=== PATIENT | female | born 1985 | race African-American/Black ===

== ENCOUNTER 2016-10-04 18:55 | Day surgery (SDC) | payer BC ==
[2016-10-04] MEDS ORDERED: Sodium Chloride 0.9% 10 ML Syringe FLUSH PRN (19:18)
[2016-10-04] MEDS ORDERED: HYDROmorphone 0.5 MG/0.5 ML Syringe IVPUSH ONE (19:20)
[2016-10-04] MEDS ORDERED: Sodium Chloride 0.9% 1,000 ML IV SCH (19:30)
[2016-10-04] MEDS ORDERED: Bupivacaine 0.5% 30 ML SDV ONE (21:01)
[2016-10-04] MEDS ORDERED: Rocuronium 50 MG/5 ML Vial ONE (21:15)
[2016-10-04] MEDS ORDERED: fentaNYL 250 MCG/5 ML SDV ONE ×2 (21:15→23:18)
[2016-10-04] MEDS ORDERED: Midazolam 1 MG/ML 2 ML SDV ONE (21:15)
[2016-10-04] MEDS ORDERED: Propofol 200 MG/20 ML SDV ONE (21:15)
[2016-10-04] MEDS ORDERED: Ondansetron 4 MG/2 ML SDV ONE (21:15)
[2016-10-04] MEDS ORDERED: Lidocaine 1% 4 ML ONE (21:16)
--- NOTE | 2016-10-04 21:19 | US ---
First trimester obstetrical ultrasound: Multiple real-time images were obtained transvaginally. Comparison: No previous study. No intrauterine gestational sac is seen. Soft tissue abnormality is seen next to the left ovary measuring 3.4 cm in greatest dimension. Ectopic is a possibility. Ovaries are otherwise unremarkable showing normal follicles. There is a small amount of complicated fluid within the pelvis which likely represents blood. Impression: 1. Soft tissue abnormality next to the left ovary measuring 3.4 cm. Small amount of blood felt to be present within the cul-de-sac. Findings are suspicious for ectopic given that no intrauterine gestational sac is seen. Diagnostic code #5
--- NOTE | 2016-10-04 21:25 | EDM.PDOC ---
ED HPI GI/ABDOMINAL - General Chief Complaint: ENTERTAINER & COMIC Problem Stated Complaint: LEFT SIDE PAIN Time Seen by Provider: 10/04/16 19:04 Source of Information: Reports: Patient History Limitations: Reports: No limitations - History of Present Illness INITIAL COMMENTS - FREE TEXT/NARRATIVE: The patient presents with LLQ abdominal paint that started yesterday. She has no nausea and vomiting. She was seen at the walk in clinic and sent over for possible ectopic . The patient had an ectopic a few years ago in [facility]. She had surgery. From what she says they did not need to remove the fallopian tube. She has a positive test and some bleeding. She has no nausea or vomiting. She has no nausea or vomiting. She has no diarrhea. Her last normal menstrual period was a few days ago but before that it was a couple months. Timing/Duration: Reports: Day(s): Location: [facility] Quality: Reports: stabbing Severity: moderate Context: Denies: sick contact, bad/questionable food, out of country travel, recent surgery Associated Symptoms (-Female): Denies: denies other symptoms - Related Data Allergies/ADRs: Allergies Allergy/AdvReac Type Severity Reaction Status Date / Time No Known Allergies Allergy Verified 10/04/16 19:08 Home Meds: Home Meds . 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 Denies: dysuria, frequency Musculoskeletal: Reports: no symptoms ED EXAM, GI/ABD - Physical Exam Exam: See Below Exam Limited By: No limitations General Appearance: alert, no apparent distress Ears: normal external exam Nose: normal inspection Head: atraumatic, normocephalic Neck: normal inspection Respiratory/Chest: no respiratory distress, lungs clear, normal breath sounds Cardiovascular: regular rate, rhythm, no edema, no murmur GI/Abdominal: soft, no organomegaly, no mass, tenderness (Moderate to the LLQ) (Female) Exam: Normal external exam, Other (Mild dark blood in the vagian vault) Course - Vital Signs Last Recorded V/S: Last Vital Signs Temp 96.9 F 10/04/16 19:02 Pulse 100 10/04/16 19:02 Resp 89 H 10/04/16 19:02 BP 136/82 10/04/16 19:02 Pulse Ox 100 10/04/16 19:02 - Orders/Labs/Meds Orders: Active Orders 24 hr Category Date Time Status Pelvic Exam, Set Up [RC] ASDIRECTED Care 10/04/16 19:25 Active Peripheral IV Care [RC] . DIRECTED Care 10/04/16 19:18 Active ABO/RH TYPE [BBK] Stat Lab 10/04/16 19:48 Results PATIENT RETYPE [BBK] Stat Lab 10/04/16 19:48 Results Sodium Chloride 0.9% [Normal Saline] 1,000 ml Med 10/04/16 19:30 Active IV ASDIRECTED Sodium Chloride 0.9% [Saline Flush] Med 10/04/16 19:18 Active 10 ml FLUSH ASDIRECTED PRN Peripheral IV Insertion Adult [OM.PC] Stat Oth 10/04/16 19:18 Ordered Medication Orders Sodium Chloride (Normal Saline) 1,000 mls @ 125 mls/hr IV ASDIRECTED JUAN JOSE Last Admin: 10/04/16 19:33 Dose: 125 mls/hr Sodium Chloride (Saline Flush) 10 ml FLUSH ASDIRECTED PRN PRN Reason: Keep Vein Open Last Admin: 10/04/16 19:37 Dose: 10 ml Labs: Laboratory Tests 10/04/16 10/04/16 10/04/16 Range/Units 19:27 19:48 19:48 WBC 5.30 (3.98-10.04) K/mm3 RBC 4.64 (3.98-5.22) M/mm3 Hgb 14.3 (11.2-15.7) gm/L Hct 42.8 (34.1-44.9) % MCV 92.2 (79.4-94.8) fl MCH 30.8 (25.6-32.2) pg MCHC 33.4 (32.2-35.5) g/dl RDW Std Deviation 42.9 (36.4-46.3) fL Plt Count 235 (182-369) K/mm3 MPV 10.2 (9.4-12.3) fl Neut % (Auto) 59.8 (34.0-71.1) % Lymph % (Auto) 33.2 (19.3-51.7) % [place] % (Auto) 6.4 (4.7-12.5) % Eos % (Auto) 0.4 L (0.7-5.8) Baso % (Auto) 0.2 (0.1-1.2) % Neut # 3.17 (1.56-6.13) K/mm3 Lymph # 1.76 (1.18-3.74) K/mm3 [place] # 0.34 (0.24-0.36) K/mm3 Eos # 0.02 L (0.04-0.36) K/mm3 Baso # 0.01 (0.01-0.08) K/mm3 Sodium 139 (136-145) mEq/L Potassium 3.9 (3.5-5.1) mEq/L Chloride 103 (98-107) mEq/L Carbon Dioxide 27 (21-32) mEq/L Anion Gap 12.9 (5-15) BUN 6 L (7-18) mg/dL Creatinine 0.7 (0.55-1.02) mg/dL Est Cr Clr Drug Dosing 125.92 mL/min Estimated GFR (MDRD) > 60 (>60) mL/min BUN/Creatinine Ratio 8.6 L (14-18) Glucose 88 (74-106) mg/dL Calcium 9.7 (8.5-10.1) mg/dL Total Bilirubin 0.3 (0.2-1.0) mg/dL AST 26 (15-37) U/L ALT 26 (14-59) U/L Alkaline Phosphatase 104 (46-116) U/L Total Protein 8.1 (6.4-8.2) g/dl Albumin 3.6 (3.4-5.0) g/dl Globulin 4.5 gm/dL Albumin/Globulin Ratio 0.8 L (1-2) Lipase 113 (73-393) U/L HCG, Quant mIU/mL Urine Color Yellow (Yellow) Urine Appearance Clear (Clear) Urine pH 5.5 (5.0-8.0) Ur Specific [place] 1.010 (1.005-1.030) Urine Protein Negative (Negative) Urine Glucose (UA) Negative (Negative) Urine Ketones Negative (Negative) Urine Occult Blood Trace-lysed H (Negative) Urine Nitrite Negative (Negative) Urine Bilirubin Negative (Negative) Urine Urobilinogen 0.2 (0.2-1.0) Ur Leukocyte Esterase Negative (Negative) Urine RBC 0-5 (0-5) /hpf Urine WBC 0-5 (0-5) /hpf Ur Squamous Epith Cells 0-5 (0-5) /hpf Urine Bacteria Rare (FEW) /hpf Urine Mucus Not seen (FEW) /hpf Blood Type 10/04/16 10/04/16 Range/Units 19:48 19:48 WBC (3.98-10.04) K/mm3 RBC (3.98-5.22) M/mm3 Hgb (11.2-15.7) gm/L Hct (34.1-44.9) % MCV (79.4-94.8) fl MCH (25.6-32.2) pg MCHC (32.2-35.5) g/dl RDW Std Deviation (36.4-46.3) fL Plt Count (182-369) K/mm3 MPV (9.4-12.3) fl Neut % (Auto) (34.0-71.1) % Lymph % (Auto) (19.3-51.7) % [place] % (Auto) (4.7-12.5) % Eos % (Auto) (0.7-5.8) Baso % (Auto) (0.1-1.2) % Neut # (1.56-6.13) K/mm3 Lymph # (1.18-3.74) K/mm3 [place] # (0.24-0.36) K/mm3 Eos # (0.04-0.36) K/mm3 Baso # (0.01-0.08) K/mm3 Sodium (136-145) mEq/L Potassium (3.5-5.1) mEq/L Chloride (98-107) mEq/L Carbon Dioxide (21-32) mEq/L Anion Gap (5-15) BUN (7-18) mg/dL Creatinine (0.55-1.02) mg/dL Est Cr Clr Drug Dosing mL/min Estimated GFR (MDRD) (>60) mL/min BUN/Creatinine Ratio (14-18) Glucose (74-106) mg/dL Calcium (8.5-10.1) mg/dL Total Bilirubin (0.2-1.0) mg/dL AST (15-37) U/L ALT (14-59) U/L Alkaline Phosphatase (46-116) U/L Total Protein (6.4-8.2) g/dl Albumin (3.4-5.0) g/dl Globulin gm/dL Albumin/Globulin Ratio (1-2) Lipase (73-393) U/L HCG, Quant 113.0 mIU/mL Urine Color (Yellow) Urine Appearance (Clear) Urine pH (5.0-8.0) Ur Specific [place] (1.005-1.030) Urine Protein (Negative) Urine Glucose (UA) (Negative) Urine Ketones (Negative) Urine Occult Blood (Negative) Urine Nitrite (Negative) Urine Bilirubin (Negative) Urine Urobilinogen (0.2-1.0) Ur Leukocyte Esterase (Negative) Urine RBC (0-5) /hpf Urine WBC (0-5) /hpf Ur Squamous Epith Cells (0-5) /hpf Urine Bacteria (FEW) /hpf Urine Mucus (FEW) /hpf Blood Type O POSITIVE Meds: Medications Generic Name Dose Route Start Last Admin Trade Name Freq PRN Reason Stop Dose Admin Sodium Chloride 1,000 mls @ 125 mls/hr 10/04/16 19:30 10/04/16 19:33 Normal Saline IV 125 mls/hr ASDIRECTED JUAN JOSE Administration Sodium Chloride 10 ml 10/04/16 19:18 10/04/16 19:37 Saline Flush FLUSH 10 ml ASDIRECTED PRN Administration Keep Vein Open Discontinued Medications Generic Name Dose Route Start Last Admin Trade Name Freq PRN Reason Stop Dose Admin Bupivacaine HCl Confirm 10/04/16 21:01 Marcaine 0.5% Administered 10/04/16 21:02 Dose 30 ml .ROUTE .STK-MED ONE Fentanyl Confirm 10/04/16 21:15 Sublimaze Administered 10/04/16 21:16 Dose 250 mcg .ROUTE .STK-MED ONE Hydromorphone HCl 0.5 mg 10/04/16 19:20 10/04/16 19:36 Dilaudid IVPUSH 10/04/16 19:21 0.5 mg ONETIME ONE Administration Lidocaine HCl Confirm 10/04/16 21:16 Xylocaine-Mpf 1% Administered 10/04/16 21:17 Dose 4 mls @ as directed .ROUTE .STK-MED ONE Midazolam HCl Confirm 10/04/16 21:15 Versed 1 Mg/Ml Administered 10/04/16 21:16 Dose 2 mg .ROUTE .STK-MED ONE Ondansetron HCl Confirm 10/04/16 21:15 Zofran Administered 10/04/16 21:16 Dose 4 mg .ROUTE .STK-MED ONE Propofol Confirm 10/04/16 21:15 Diprivan 20 Ml Administered 10/04/16 21:16 Dose 200 mg .ROUTE .STK-MED ONE Rocuronium [place] Confirm 10/04/16 21:15 Zemuron Administered 10/04/16 21:16 Dose 50 mg .ROUTE .STK-MED ONE - Re-Assessments/Exams Free Text/Narrative Re-Assessment/Exam: 10/04/16 21:24 I ordered an IV NS 1L bolus, dilaudid 0.5mg IV, labs, UA and US. Her CBC and CMP looks good. Her UA shows some blood but no UTI. Her HCG was 113. She has a mass in the left adnexa and no IUP and there is some fluid in the cauldesac. She has an ectopic . She is RH positive. I called Dr Moore and he will come see the patient and take her to the OR. Departure - Departure Time of Disposition: 21:30 Disposition: Refer to Observation Condition: serious Clinical Impression: Ectopic Qualifiers: Location of ectopic : tubal Intrauterine status: without intrauterine Qualified Code(s): O00.10 - Tubal without intrauterine - My Orders Last 24 Hours: My Active Orders 10/04/16 19:18 Peripheral IV Care [RC] . DIRECTED Sodium Chloride 0.9% [Saline Flush] 10 ml FLUSH ASDIRECTED PRN Peripheral IV Insertion Adult [OM.PC] Stat 03/15/17 19:25 Pelvic Exam, Set Up [RC] ASDIRECTED 10/04/16 19:30 Sodium Chloride 0.9% [Normal Saline] 1,000 ml IV ASDIRECTED 10/04/16 19:48 ABO/RH TYPE [BBK] Stat PATIENT RETYPE [BBK] Stat - Assessment/Plan Last 24 Hours: My Active Orders 10/04/16 19:18 Peripheral IV Care [RC] . DIRECTED Sodium Chloride 0.9% [Saline Flush] 10 ml FLUSH ASDIRECTED PRN Peripheral IV Insertion Adult [OM.PC] Stat 10/04/16 19:25 Pelvic Exam, Set Up [RC] ASDIRECTED 10/04/16 19:30 Sodium Chloride 0.9% [Normal Saline] 1,000 ml IV ASDIRECTED 10/04/16 19:48 ABO/RH TYPE [BBK] Stat PATIENT RETYPE [BBK] Stat
--- NOTE | 2016-10-04 21:28 | PCM.HP ---
H&P History of Present Illness - General Date of Service: 10/04/16 Source of Information: Patient History Limitations: Reports: No limitations - History of Present Illness Initial Comments - Free Text/Narative: 31 y/o Prior ectopic by history left side. LMP "sometime in July 2016" patient not sure of date. Patient awoke this AM 1100 with sudden onset left lower quadrant pain and it has persisted since then. She started having vaginal bleeding 09/28/2016 and it has persisted since then. Positive test here in hospital today. H/O Rh positive. LLQ pain persist. USG revealed no intrauterine gestational sac seen. Soft tissue abnormality is seen next to the left ovary measuring 3.4 cm in greatest dimension. Ectopic is possibility. Ovaries otherwise unremarkable. Small amount of complicated fluid within the pelvis likely represent blood. Plan laparoscopy possible laparotomy and removal of a tube/ovary. Also possible Dilatation and curettage. Onset of Symptoms: Reports: today Symptom Onset Date: 10/04/16 Symptom Onset Time: 11:00 Duration of Symptoms: Reports: Hour(s):, Getting worse Location: Reports: abdomen (predominately LLQ) Quality: Reports: Ache, Dull, Pressure Improves with: Reports: None Worsens with: Reports: None Associated Symptoms: Reports: no other symptoms Left Lower Abdomen Pain Score (Numeric/FACES): 5 - Related Data Allergies/Adverse Reactions: Allergies Allergy/AdvReac Type Severity Reaction Status Date / Time No Known Allergies Allergy Verified 10/04/16 19:08 Home Medications: Home Meds . 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) LMP (Approximate): (positive test H/O prior ectopic left side.) Other OB/BYN History: 2010 Psychiatric History: Reports: Anxiety, Depression Social & Family History - Tobacco Use Smoking Status *Q: Current Some Day Smoker Years of Tobacco use: 3 Packs/Tins Daily: 0.1 - Caffeine Use Caffeine Use: Reports: Coffee - Recreational Drug Use Recreational Drug Use: No H&P Review of Systems - Review of Systems: Review Of Systems: See Below General: Reports: no symptoms HEENT: Reports: no symptoms Pulmonary: Reports: No Symptoms Cardiovascular: Reports: no symptoms Gastrointestinal: Reports: No symptoms Genitourinary: Reports: no symptoms Musculoskeletal: Reports: no symptoms Skin: Reports: no symptoms Psychiatric: Reports: no symptoms Neurological: Reports: No Symptoms Hematologic/Lymphatic: Reports: no symptoms Immunologic: Reports: no symptoms Exam - Exam Exam: See Below - Vital Signs Vital Signs: Last Vital Signs Temp 96.9 F 10/04/16 19:02 Pulse 100 10/04/16 19:02 Resp 89 H 10/04/16 19:02 BP 136/82 10/04/16 19:02 Pulse Ox 100 10/04/16 19:02 Weight: 198 lb - Exam General: alert, oriented, 4 HEENT: Conjunctiva clear, Hearing intact, Mucosa moist & pink, PERRLA Neck: supple, trachea midline, 2 Lungs: Clear to auscultation, Normal respiratory effort Cardiovascular: regular rate, regular rhythm Abdomen: normal bowel sounds, soft (Female) Exam: Normal external exam, Normal speculum exam, Normal bimanual exam Back Exam: normal inspection, full range of motion, NT Extremities: 3, normal inspection, 10 Skin: warm, dry, intact Neuro Extensive - Mental Status: alert, oriented x3, normal mood/affect, normal cognition Neuro Extensive - Motor, Sensory, Reflexes: CN II-XII intact, normal gait, normal reflexes Psychiatric: alert, normal affect, normal mood - Patient Data Lab Results last 24 hrs: Laboratory Results - last 24 hr 10/04/16 10/04/16 10/04/16 Range/Units 19:27 19:48 19:48 WBC 5.30 (3.98-10.04) K/mm3 RBC 4.64 (3.98-5.22) M/mm3 Hgb 14.3 (11.2-15.7) gm/L Hct 42.8 (34.1-44.9) % MCV 92.2 (79.4-94.8) fl MCH 30.8 (25.6-32.2) pg MCHC 33.4 (32.2-35.5) g/dl RDW Std Deviation 42.9 (36.4-46.3) fL Plt Count 235 (182-369) K/mm3 MPV 10.2 (9.4-12.3) fl Neut % (Auto) 59.8 (34.0-71.1) % Lymph % (Auto) 33.2 (19.3-51.7) % [place] % (Auto) 6.4 (4.7-12.5) % Eos % (Auto) 0.4 L (0.7-5.8) Baso % (Auto) 0.2 (0.1-1.2) % Neut # 3.17 (1.56-6.13) K/mm3 Lymph # 1.76 (1.18-3.74) K/mm3 [place] # 0.34 (0.24-0.36) K/mm3 Eos # 0.02 L (0.04-0.36) K/mm3 Baso # 0.01 (0.01-0.08) K/mm3 Sodium 139 (136-145) mEq/L Potassium 3.9 (3.5-5.1) mEq/L Chloride 103 (98-107) mEq/L Carbon Dioxide 27 (21-32) mEq/L Anion Gap 12.9 (5-15) BUN 6 L (7-18) mg/dL Creatinine 0.7 (0.55-1.02) mg/dL Est Cr Clr Drug Dosing 125.92 mL/min Estimated GFR (MDRD) > 60 (>60) mL/min BUN/Creatinine Ratio 8.6 L (14-18) Glucose 88 (74-106) mg/dL Calcium 9.7 (8.5-10.1) mg/dL Total Bilirubin 0.3 (0.2-1.0) mg/dL AST 26 (15-37) U/L ALT 26 (14-59) U/L Alkaline Phosphatase 104 (46-116) U/L Total Protein 8.1 (6.4-8.2) g/dl Albumin 3.6 (3.4-5.0) g/dl Globulin 4.5 gm/dL Albumin/Globulin Ratio 0.8 L (1-2) Lipase 113 (73-393) U/L HCG, Quant mIU/mL Urine Color Yellow (Yellow) Urine Appearance Clear (Clear) Urine pH 5.5 (5.0-8.0) Ur Specific [place] 1.010 (1.005-1.030) Urine Protein Negative (Negative) Urine Glucose (UA) Negative (Negative) Urine Ketones Negative (Negative) Urine Occult Blood Trace-lysed H (Negative) Urine Nitrite Negative (Negative) Urine Bilirubin Negative (Negative) Urine Urobilinogen 0.2 (0.2-1.0) Ur Leukocyte Esterase Negative (Negative) Urine RBC 0-5 (0-5) /hpf Urine WBC 0-5 (0-5) /hpf Ur Squamous Epith Cells 0-5 (0-5) /hpf Urine Bacteria Rare (FEW) /hpf Urine Mucus Not seen (FEW) /hpf Blood Type 10/04/16 10/04/16 Range/Units 19:48 19:48 WBC (3.98-10.04) K/mm3 RBC (3.98-5.22) M/mm3 Hgb (11.2-15.7) gm/L Hct (34.1-44.9) % MCV (79.4-94.8) fl MCH (25.6-32.2) pg MCHC (32.2-35.5) g/dl RDW Std Deviation (36.4-46.3) fL Plt Count (182-369) K/mm3 MPV (9.4-12.3) fl Neut % (Auto) (34.0-71.1) % Lymph % (Auto) (19.3-51.7) % [place] % (Auto) (4.7-12.5) % Eos % (Auto) (0.7-5.8) Baso % (Auto) (0.1-1.2) % Neut # (1.56-6.13) K/mm3 Lymph # (1.18-3.74) K/mm3 [place] # (0.24-0.36) K/mm3 Eos # (0.04-0.36) K/mm3 Baso # (0.01-0.08) K/mm3 Sodium (136-145) mEq/L Potassium (3.5-5.1) mEq/L Chloride (98-107) mEq/L Carbon Dioxide (21-32) mEq/L Anion Gap (5-15) BUN (7-18) mg/dL Creatinine (0.55-1.02) mg/dL Est Cr Clr Drug Dosing mL/min Estimated GFR (MDRD) (>60) mL/min BUN/Creatinine Ratio (14-18) Glucose (74-106) mg/dL Calcium (8.5-10.1) mg/dL Total Bilirubin (0.2-1.0) mg/dL AST (15-37) U/L ALT (14-59) U/L Alkaline Phosphatase (46-116) U/L Total Protein (6.4-8.2) g/dl Albumin (3.4-5.0) g/dl Globulin gm/dL Albumin/Globulin Ratio (1-2) Lipase (73-393) U/L HCG, Quant 113.0 mIU/mL Urine Color (Yellow) Urine Appearance (Clear) Urine pH (5.0-8.0) Ur Specific [place] (1.005-1.030) Urine Protein (Negative) Urine Glucose (UA) (Negative) Urine Ketones (Negative) Urine Occult Blood (Negative) Urine Nitrite (Negative) Urine Bilirubin (Negative) Urine Urobilinogen (0.2-1.0) Ur Leukocyte Esterase (Negative) Urine RBC (0-5) /hpf Urine WBC (0-5) /hpf Ur Squamous Epith Cells (0-5) /hpf Urine Bacteria (FEW) /hpf Urine Mucus (FEW) /hpf Blood Type O POSITIVE Result Diagrams: 10/04/16 19:48 10/04/16 19:48 *Q Meaningful Use (ADM) - VTE *Q VTE Criteria *Q: - Stroke *Q Stroke Criteria *Q: - AMI *Q AMI Criteria *Q: Problem List Initiated/Reviewed/Updated: Yes Orders Last 24hrs: Active Orders 24 hr Category Date Time Status Pelvic Exam, Set Up [RC] ASDIRECTED Care 10/04/16 19:25 Active Peripheral IV Care [RC] . DIRECTED Care 10/04/16 19:18 Active ABO/RH TYPE [BBK] Stat Lab 10/04/16 19:48 Results PATIENT RETYPE [BBK] Stat Lab 10/04/16 19:48 Results Sodium Chloride 0.9% [Normal Saline] 1,000 ml Med 10/04/16 19:30 Active IV ASDIRECTED Sodium Chloride 0.9% [Saline Flush] Med 10/04/16 19:18 Active 10 ml FLUSH ASDIRECTED PRN Peripheral IV Insertion Adult [OM.PC] Stat Oth 10/04/16 19:18 Ordered Medication Orders Sodium Chloride (Normal Saline) 1,000 mls @ 125 mls/hr IV ASDIRECTED JUAN JOSE Last Admin: 10/04/16 19:33 Dose: 125 mls/hr Sodium Chloride (Saline Flush) 10 ml FLUSH ASDIRECTED PRN PRN Reason: Keep Vein Open Last Admin: 10/04/16 19:37 Dose: 10 ml Assessment/Plan Comment:: Left lower quadrant pain suspected ectopic and empty uterus. Plan Laparoscopy, possible laparotomy and removal of a tube and/or ovary, possible dialatation and curettage.
--- NOTE | 2016-10-04 21:35 | PCM.PREANE ---
Preanesthetic Assessment - Anesthesia/Transfusion/Family Hx Anesthesia History: Prior Anesthesia Without Reaction Family History of Anesthesia Reaction: No Transfusion History: Unknown Intubation History: Unknown - Review of Systems General: Fatigue Pulmonary: No Symptoms Cardiovascular: No Symptoms Gastrointestinal: Abdominal pain Neurological: No Symptoms Other: Reports: None - Physical Assessment NPO Status Date: 10/04/16 NPO Status Time: 10:00 Pulse: 100 O2 Sat by Pulse Oximetry: 100 Respiratory Rate: 89 Blood Pressure: 136/82 Temperature: 36.1 C Vital Signs: Last Vital Signs Temp 36.1 C 10/04/16 19:02 Pulse 100 10/04/16 19:02 Resp 89 H 10/04/16 19:02 BP 136/82 10/04/16 19:02 Pulse Ox 100 10/04/16 19:02 Height: 1.78 m Weight: 89.811 kg ASA Class: 2E Mental Status: Alert & Oriented x3 Airway Class: Mallampati = 1 Dentition: Reports: Normal Dentition Thyro-Mental Finger Breadths: 3 Mouth Opening Finger Breadths: 3 ROM/Head Extension: Full Lungs: Clear to auscultation, Normal respiratory effort Cardiovascular: Regular Rate, Regular Rhythm, No Murmurs - Lab Values: Laboratory Last Values WBC 5.30 K/mm3 (3.98-10.04) 10/04/16 19:48 RBC 4.64 M/mm3 (3.98-5.22) 10/04/16 19:48 Hgb 14.3 gm/L (11.2-15.7) 10/04/16 19:48 Hct 42.8 % (34.1-44.9) 10/04/16 19:48 MCV 92.2 fl (79.4-94.8) 10/04/16 19:48 MCH 30.8 pg (25.6-32.2) 10/04/16 19:48 MCHC 33.4 g/dl (32.2-35.5) 10/04/16 19:48 RDW Std Deviation 42.9 fL (36.4-46.3) 10/04/16 19:48 Plt Count 235 K/mm3 (182-369) 10/04/16 19:48 MPV 10.2 fl (9.4-12.3) 10/04/16 19:48 Neut % (Auto) 59.8 % (34.0-71.1) 10/04/16 19:48 Lymph % (Auto) 33.2 % (19.3-51.7) 10/04/16 19:48 Bryan % (Auto) 6.4 % (4.7-12.5) 10/04/16 19:48 Eos % (Auto) 0.4 (0.7-5.8) L 10/04/16 19:48 Baso % (Auto) 0.2 % (0.1-1.2) 10/04/16 19:48 Neut # 3.17 K/mm3 (1.56-6.13) 10/04/16 19:48 Lymph # 1.76 K/mm3 (1.18-3.74) 10/04/16 19:48 Bryan # 0.34 K/mm3 (0.24-0.36) 10/04/16 19:48 Eos # 0.02 K/mm3 (0.04-0.36) L 10/04/16 19:48 Baso # 0.01 K/mm3 (0.01-0.08) 10/04/16 19:48 Sodium 139 mEq/L (136-145) 10/04/16 19:48 Potassium 3.9 mEq/L (3.5-5.1) 10/04/16 19:48 Chloride 103 mEq/L (98-107) 10/04/16 19:48 Carbon Dioxide 27 mEq/L (21-32) 10/04/16 19:48 Anion Gap 12.9 (5-15) 10/04/16 19:48 BUN 6 mg/dL (7-18) L 10/04/16 19:48 Creatinine 0.7 mg/dL (0.55-1.02) 10/04/16 19:48 Est Cr Clr Drug Dosing 125.92 mL/min 10/04/16 19:48 Estimated GFR (MDRD) > 60 mL/min (>60) 10/04/16 19:48 BUN/Creatinine Ratio 8.6 (14-18) L 10/04/16 19:48 Glucose 88 mg/dL (74-106) 10/04/16 19:48 Calcium 9.7 mg/dL (8.5-10.1) 10/04/16 19:48 Total Bilirubin 0.3 mg/dL (0.2-1.0) 10/04/16 19:48 AST 26 U/L (15-37) 10/04/16 19:48 ALT 26 U/L (14-59) 10/04/16 19:48 Alkaline Phosphatase 104 U/L (46-116) 10/04/16 19:48 Total Protein 8.1 g/dl (6.4-8.2) 10/04/16 19:48 Albumin 3.6 g/dl (3.4-5.0) 10/04/16 19:48 Globulin 4.5 gm/dL 10/04/16 19:48 Albumin/Globulin Ratio 0.8 (1-2) L 10/04/16 19:48 Lipase 113 U/L (73-393) 10/04/16 19:48 HCG, Quant 113.0 mIU/mL 10/04/16 19:48 Urine Color Yellow (Yellow) 10/04/16 19:27 Urine Appearance Clear (Clear) 10/04/16 19:27 Urine pH 5.5 (5.0-8.0) 10/04/16 19:27 Ur Specific [place] 1.010 (1.005-1.030) 10/04/16 19:27 Urine Protein Negative (Negative) 10/04/16 19:27 Urine Glucose (UA) Negative (Negative) 10/04/16 19:27 Urine Ketones Negative (Negative) 10/04/16 19:27 Urine Occult Blood Trace-lysed (Negative) H 10/04/16 19:27 Urine Nitrite Negative (Negative) 10/04/16 19:27 Urine Bilirubin Negative (Negative) 10/04/16 19:27 Urine Urobilinogen 0.2 (0.2-1.0) 10/04/16 19:27 Ur Leukocyte Esterase Negative (Negative) 10/04/16 19:27 Urine RBC 0-5 /hpf (0-5) 10/04/16 19:27 Urine WBC 0-5 /hpf (0-5) 10/04/16 19:27 Ur Squamous Epith Cells 0-5 /hpf (0-5) 10/04/16 19:27 Urine Bacteria Rare /hpf (FEW) 10/04/16 19:27 Urine Mucus Not seen /hpf (FEW) 10/04/16 19:27 Blood Type O POSITIVE 10/04/16 19:48 - Allergies Allergies/Adverse Reactions: Allergies Allergy/AdvReac Type Severity Reaction Status Date / Time No Known Allergies Allergy Verified 10/04/16 19:08 - Anesthesia Plan Pre-Op Medication Ordered: None - Acknowledgements Anesthesia Type Planned: General Anesthesia Pt an Appropriate Candidate for the Planned Anesthesia: Yes Alternatives and Risks of Anesthesia Discussed w Pt/Guardian: Yes Pt/Guardian Understands and Agrees with Anesthesia Plan: Yes PreAnesthesia Questionnaire [employer] History: Reports: Ectopic , Other OB/BYN History: 2010 Psychiatric History: Reports: Anxiety, Depression - SUBSTANCE USE Smoking Status *Q: Current Some Day Smoker Tobacco Use Within Last Twelve Months: Cigarettes Second Hand Smoke Exposure: No Days Per Week of Alcohol Use: 3 Number of Drinks Per Day: 1 Total Drinks Per Week: 3 Recreational Drug Use History: No - HOME MEDS Home Medications: Home Meds . [No Known Home Meds] 10/04/16 [History] - CURRENT (IN HOUSE) MEDS Current Meds: Current Medications Sodium Chloride (Normal Saline) 1,000 mls @ 125 mls/hr IV ASDIRECTED JUAN JOSE Last Admin: 10/04/16 19:33 Dose: 125 mls/hr Sodium Chloride (Saline Flush) 10 ml FLUSH ASDIRECTED PRN PRN Reason: Keep Vein Open Last Admin: 10/04/16 19:37 Dose: 10 ml Discontinued Medications Bupivacaine HCl (Marcaine 0.5%) Confirm Administered Dose 30 ml .ROUTE .STK-MED ONE Stop: 10/04/16 21:02 Fentanyl (Sublimaze) Confirm Administered Dose 250 mcg .ROUTE .STK-MED ONE Stop: 10/04/16 21:16 Hydromorphone HCl (Dilaudid) 0.5 mg IVPUSH ONETIME ONE Stop: 10/04/16 19:21 Last Admin: 10/04/16 19:36 Dose: 0.5 mg Lidocaine HCl (Xylocaine-Mpf 1%) Confirm Administered Dose 4 mls @ as directed .ROUTE .STK-MED ONE Stop: 10/04/16 21:17 Midazolam HCl (Versed 1 Mg/Ml) Confirm Administered Dose 2 mg .ROUTE .STK-MED ONE Stop: 10/04/16 21:16 Ondansetron HCl (Zofran) Confirm Administered Dose 4 mg .ROUTE .STK-MED ONE Stop: 10/04/16 21:16 Propofol (Diprivan 20 Ml) Confirm Administered Dose 200 mg .ROUTE .STK-MED ONE Stop: 10/04/16 21:16 Rocuronium [place] (Zemuron) Confirm Administered Dose 50 mg .ROUTE .STK-MED ONE Stop: 10/04/16 21:16 Preanesthetic Assessment - PHYSICAL ASSESSMENT O2 Sat by Pulse Oximetry: 100 RR: 89 Vital Signs: Last Vital Signs Temp 36.1 C 10/04/16 19:02 Pulse 100 10/04/16 19:02 Resp 89 H 10/04/16 19:02 BP 136/82 10/04/16 19:02 Pulse Ox 100 10/04/16 19:02 Height: 1.78 m Weight: 89.811 kg - LAB Values: Laboratory Last Values WBC 5.30 K/mm3 (3.98-10.04) 10/04/16 19:48 RBC 4.64 M/mm3 (3.98-5.22) 10/04/16 19:48 Hgb 14.3 gm/L (11.2-15.7) 10/04/16 19:48 Hct 42.8 % (34.1-44.9) 10/04/16 19:48 MCV 92.2 fl (79.4-94.8) 10/04/16 19:48 MCH 30.8 pg (25.6-32.2) 10/04/16 19:48 MCHC 33.4 g/dl (32.2-35.5) 10/04/16 19:48 RDW Std Deviation 42.9 fL (36.4-46.3) 10/04/16 19:48 Plt Count 235 K/mm3 (182-369) 10/04/16 19:48 MPV 10.2 fl (9.4-12.3) 10/04/16 19:48 Neut % (Auto) 59.8 % (34.0-71.1) 10/04/16 19:48 Lymph % (Auto) 33.2 % (19.3-51.7) 10/04/16 19:48 Bryan % (Auto) 6.4 % (4.7-12.5) 10/04/16 19:48 Eos % (Auto) 0.4 (0.7-5.8) L 10/04/16 19:48 Baso % (Auto) 0.2 % (0.1-1.2) 10/04/16 19:48 Neut # 3.17 K/mm3 (1.56-6.13) 10/04/16 19:48 Lymph # 1.76 K/mm3 (1.18-3.74) 10/04/16 19:48 Bryan # 0.34 K/mm3 (0.24-0.36) 10/04/16 19:48 Eos # 0.02 K/mm3 (0.04-0.36) L 10/04/16 19:48 Baso # 0.01 K/mm3 (0.01-0.08) 10/04/16 19:48 Sodium 139 mEq/L (136-145) 10/04/16 19:48 Potassium 3.9 mEq/L (3.5-5.1) 10/04/16 19:48 Chloride 103 mEq/L (98-107) 10/04/16 19:48 Carbon Dioxide 27 mEq/L (21-32) 10/04/16 19:48 Anion Gap 12.9 (5-15) 10/04/16 19:48 BUN 6 mg/dL (7-18) L 10/04/16 19:48 Creatinine 0.7 mg/dL (0.55-1.02) 10/04/16 19:48 Est Cr Clr Drug Dosing 125.92 mL/min 10/04/16 19:48 Estimated GFR (MDRD) > 60 mL/min (>60) 10/04/16 19:48 BUN/Creatinine Ratio 8.6 (14-18) L 10/04/16 19:48 Glucose 88 mg/dL (74-106) 10/04/16 19:48 Calcium 9.7 mg/dL (8.5-10.1) 10/04/16 19:48 Total Bilirubin 0.3 mg/dL (0.2-1.0) 10/04/16 19:48 AST 26 U/L (15-37) 10/04/16 19:48 ALT 26 U/L (14-59) 10/04/16 19:48 Alkaline Phosphatase 104 U/L (46-116) 10/04/16 19:48 Total Protein 8.1 g/dl (6.4-8.2) 10/04/16 19:48 Albumin 3.6 g/dl (3.4-5.0) 10/04/16 19:48 Globulin 4.5 gm/dL 10/04/16 19:48 Albumin/Globulin Ratio 0.8 (1-2) L 10/04/16 19:48 Lipase 113 U/L (73-393) 10/04/16 19:48 HCG, Quant 113.0 mIU/mL 10/04/16 19:48 Urine Color Yellow (Yellow) 10/04/16 19:27 Urine Appearance Clear (Clear) 10/04/16 19:27 Urine pH 5.5 (5.0-8.0) 10/04/16 19:27 Ur Specific [place] 1.010 (1.005-1.030) 10/04/16 19:27 Urine Protein Negative (Negative) 10/04/16 19:27 Urine Glucose (UA) Negative (Negative) 10/04/16 19:27 Urine Ketones Negative (Negative) 10/04/16 19:27 Urine Occult Blood Trace-lysed (Negative) H 10/04/16 19:27 Urine Nitrite Negative (Negative) 10/04/16 19:27 Urine Bilirubin Negative (Negative) 10/04/16 19:27 Urine Urobilinogen 0.2 (0.2-1.0) 10/04/16 19:27 Ur Leukocyte Esterase Negative (Negative) 10/04/16 19:27 Urine RBC 0-5 /hpf (0-5) 10/04/16 19:27 Urine WBC 0-5 /hpf (0-5) 10/04/16 19:27 Ur Squamous Epith Cells 0-5 /hpf (0-5) 10/04/16 19:27 Urine Bacteria Rare /hpf (FEW) 10/04/16 19:27 Urine Mucus Not seen /hpf (FEW) 10/04/16 19:27 Blood Type O POSITIVE 10/04/16 19:48 - ALLERGIES Allergies/Adverse Reactions: Allergies Allergy/AdvReac Type Severity Reaction Status Date / Time No Known Allergies Allergy Verified 10/04/16 19:08
[2016-10-04] MEDS ORDERED: ceFAZolin 1,000 MG VIAL IVPUSH ONE (21:45)
[2016-10-04] MEDS ORDERED: ceFAZolin 1 GM Vial ONE (22:12)
[2016-10-04] MEDS ORDERED: Ketorolac 30 MG/ML SDV ONE (23:51)
[2016-10-04] MEDS ORDERED: Neostigmine Methylsulfate 1 MG/ML 5 ML Syringe ONE (23:54)
[2016-10-05] MEDS ORDERED: fentaNYL 100 MCG/2 ML SDV IVPUSH PRN (00:02)
[2016-10-05] MEDS ORDERED: HYDROmorphone 0.5 MG/0.5 ML Syringe IVPUSH PRN (00:02)
--- NOTE | 2016-10-05 00:04 | PCM.POSTAN ---
POST ANESTHESIA ASSESSMENT - MENTAL STATUS Mental Status: somnolent - VITAL SIGNS Pulse Rate: 95 SaO2: 98 Resp Rate: 9 Blood Pressure: 102/59 Temperature: 36.1 C - RESPIRATORY Respiratory Status: respiratory rate WNL, airway patent, O2 saturation stable, supplemental oxygen - CARDIOVASCULAR CV Status: pulse rate WNL, blood pressure stable - GASTROINTESTINAL GI Status: no symptoms - PAIN Pain Score: 0 - POST OP HYDRATION Hydration Status: adequate & stable - OBSERVATIONS Free Text/Narrative:: no anesthesia complications noted
--- NOTE | 2016-10-05 00:08 | PCM.OPNOTE ---
- General Post-Op/Procedure Note Date of Surgery/Procedure: 10/04/16 Operative Procedure(s): Laparoscopy for ectopic . [id number], with removal of left fallopian tube Pre Op Diagnosis: Ectopic . Left fallopian tube Post-Op Diagnosis: Same Anesthesia Technique: General ET tube Primary Surgeon: Román Moore Anesthesia Provider: Norman Ryan Fluid Replacement, Intraop: 1,800 Output, Urine Amount: 350 EBL in mLs: 100 Drain/Tube Comments:: None Complications: None Condition: Good Free Text/Narrative:: Patient was transported to operating room #2, and placed under total anesthesia with endotracheal intubation in the low dorsal lithotomy position. Timeout performed confirming name, date of , and procedures laparoscopy, possible laparotomy for ectopic . Examination under anesthesia revealed left adnexal mass. Patient had had previous left ectopic in surgery in [place], but the fallopian tube was not removed by history. Uterine manipulator was placed. Harris catheter was placed and injecting 0.5% Marcaine 2 mL. At the umbilicus and suprapubic area the small incision was made and pneumoperitoneum, needle introduced and pneumoperitoneum obtained without difficulty and then, the 5 mm port in douched. Prompt visualization. The pelvic organs was accomplished, but dense adhesions of the omentum to the anterior abdominal wall had to be lysed with blunt, sharp section. Prior to being able to visualize. The left ectopic . A suprapubic port 5 mm and a right midabdomen sidewall 12 mm port introduced with transillumination to avoid vessel disruption utilizing laparoscopic instruments. The adhesions of the omentum and bowel to the intra-abdominal wall were carefully lysed with blunt, sharp section, and utilizing, Endo seal. Crossclamping, activating, and , incising, until the left ectopic could be visualized. This was then grasped, and left fallopian tube portion containing ectopic was removed along with blood clot and what appeared to be left ectopic . Left ovary was not removed. Right tube and ovary were not removed. Patient was carried out. Suction applied, and visualization. The operative area showed no bleeding. Utilizing Endobag the ectopic , and portion of fallopian tube removed and sent to pathology for tissue evaluation. Sponge, needle, practice with sharp count correct, x2. The pneumoperitoneum was reduced confirming no bleeding. At the 12 mm site and the suprapubic site, and suture ligating the anterior fascia with 0 Vicryl running, locking suture, and subcuticular suture for the right side. Incision. Good suprapubic incision and the umbilical incision followed by Dermabond. One set of pictures taken 6 images first image, shows adhesions of the omentum to the abdominal wall. Image zero loop 2, shows right fallopian tube and ovary , image 03, shows the left fallopian tube with ectopic , and blood clots. After removal of the dense adhesions image 005 shows the operative site. After removal of the ectopic , with no active bleeding. Image 6 , shows the left ovary, which was not removed. I talked with her significant other and discussed surgery and Findings and all questions answered is voice satisfaction patient placed on observation
[2016-10-05] MEDS ORDERED: Meperidine PF 50 MG/ML Syringe ONE (00:21)
[2016-10-05] MEDS ORDERED: Meperidine PF 50 MG/ML Syringe IVPUSH ONE (00:26)
[2016-10-05] MEDS ORDERED: Lactated Ringers 1,000 ML IV SCH (00:30)
[2016-10-05] MEDS ORDERED: Ibuprofen 400 MG Tab PO PRN (00:58)
[2016-10-05] MEDS ORDERED: Acetaminophen/oxyCODONE 325-5 MG Tab PO PRN (00:58)
[2016-10-05] MEDS ORDERED: Ketorolac 15 MG/ML SDV IVPUSH PRN (06:00)
--- NOTE | 2016-10-05 07:56 | PCM.PN ---
- General Info Date of Service: 10/05/16 Admission Dx/Problem (Free Text): Left ectopic . Left scopic evaluation. Removal of fallopian tube and ectopic Functional Status: Reports: pain controlled - Review of Systems General: Reports: No Symptoms HEENT: Reports: no symptoms Pulmonary: Reports: no symptoms Cardiovascular: Reports: No Symptoms Gastrointestinal: Reports: No symptoms Genitourinary: Reports: no symptoms Musculoskeletal: Reports: no symptoms Skin: Reports: no symptoms Neurological: Reports: No Symptoms Psychiatric: Reports: no symptoms - Patient Data Vitals - most recent: Last Vital Signs Temp 97.4 F 10/05/16 06:00 Pulse 78 10/05/16 05:31 Resp 15 10/05/16 06:00 BP 109/62 10/05/16 05:31 Pulse Ox 97 10/05/16 05:31 Weight - most recent: 198 lb I&O - last 24 hours: Intake & Output 10/04/16 10/05/16 10/05/16 22:59 06:59 14:59 Intake Total 3230 Output Total 700 Balance 2530 Lab Results last 24 hrs: Laboratory Results - last 24 hr 10/05/16 10/05/16 Range/Units 06:10 06:10 WBC 8.35 (3.98-10.04) K/mm3 RBC 3.92 L (3.98-5.22) M/mm3 Hgb 12.2 (11.2-15.7) gm/L Hct 37.0 (34.1-44.9) % MCV 94.4 (79.4-94.8) fl MCH 31.1 (25.6-32.2) pg MCHC 33.0 (32.2-35.5) g/dl RDW Std Deviation 43.2 (36.4-46.3) fL Plt Count 204 (182-369) K/mm3 MPV 10.7 (9.4-12.3) fl Neut % (Auto) 57.4 (34.0-71.1) % Lymph % (Auto) 33.9 (19.3-51.7) % [place] % (Auto) 7.8 (4.7-12.5) % Eos % (Auto) 0.6 L (0.7-5.8) Baso % (Auto) 0.1 (0.1-1.2) % Neut # 4.79 (1.56-6.13) K/mm3 Lymph # 2.83 (1.18-3.74) K/mm3 [place] # 0.65 H (0.24-0.36) K/mm3 Eos # 0.05 (0.04-0.36) K/mm3 Baso # 0.01 (0.01-0.08) K/mm3 HCG, Quant 73.0 mIU/mL Med Orders - Current: Current Medications Docusate Sodium (Colace) 100 mg PO BID [facility] Lactated Ringer's (Ringers, Lactated) 1,000 mls @ 125 mls/hr IV ASDIRECTED [facility] Last Admin: 10/05/16 07:31 Dose: 125 mls/hr Ibuprofen (Motrin) 600 mg PO Q6H PRN PRN Reason: Pain (mild 1-3) Ketorolac Tromethamine (Toradol) 30 mg IVPUSH Q8H PRN PRN Reason: Pain (moderate 4-6) Stop: 10/05/16 22:01 Oxycodone/Acetaminophen (Percocet 325-5 Mg) 2 tab PO Q4H PRN PRN Reason: Pain (moderate 4-6) Discontinued Medications Bupivacaine HCl (Marcaine 0.5%) Confirm Administered Dose 30 ml .ROUTE .STK-MED ONE Stop: 10/04/16 21:02 Last Admin: 10/04/16 22:15 Dose: 7 ml Cefazolin Sodium (Ancef) 2,000 mg IVPUSH ONETIME ONE Stop: 10/04/16 21:46 Last Admin: 10/05/16 02:28 Dose: Not Given Cefazolin Sodium (Ancef) Confirm Administered Dose 2 gm .ROUTE .STK-MED ONE Stop: 10/04/16 22:13 Fentanyl (Sublimaze) Confirm Administered Dose 250 mcg .ROUTE .STK-MED ONE Stop: 10/04/16 21:16 Fentanyl (Sublimaze) Confirm Administered Dose 250 mcg .ROUTE .STK-MED ONE Stop: 10/04/16 23:19 Fentanyl (Sublimaze) 50 mcg IVPUSH Q5M PRN PRN Reason: Pain Stop: 10/05/16 00:18 Glycopyrrolate () Confirm Administered Dose 1 mg .ROUTE .STK-MED ONE Stop: 10/04/16 23:55 Hydromorphone HCl (Dilaudid) 0.5 mg IVPUSH ONETIME ONE Stop: 10/04/16 19:21 Last Admin: 10/04/16 19:36 Dose: 0.5 mg Hydromorphone HCl (Dilaudid) 0.5 mg IVPUSH Q15M PRN PRN Reason: Pain Stop: 10/05/16 00:18 Sodium Chloride (Normal Saline) 1,000 mls @ 125 mls/hr IV ASDIRECTED JUAN JOSE Last Admin: 10/04/16 19:33 Dose: 125 mls/hr Lidocaine HCl (Xylocaine-Mpf 1%) Confirm Administered Dose 4 mls @ as directed .ROUTE .STK-MED ONE Stop: 10/04/16 21:17 Ketorolac Tromethamine (Toradol) Confirm Administered Dose 30 mg .ROUTE .STK- MED ONE Stop: 10/04/16 23:52 Meperidine HCl (Demerol) Confirm Administered Dose 50 mg .ROUTE .STK-MED ONE Stop: 10/05/16 00:22 Last Admin: 10/05/16 02:26 Dose: Not Given Meperidine HCl (Demerol) 12.5 mg IVPUSH ONETIME ONE Stop: 10/05/16 00:27 Last Admin: 10/05/16 00:34 Dose: 12.5 mg Midazolam HCl (Versed 1 Mg/Ml) Confirm Administered Dose 2 mg .ROUTE .STK-MED ONE Stop: 10/04/16 21:16 Neostigmine Methylsulfate (Neostigmine) Confirm Administered Dose 5 mg .ROUTE .STK-MED ONE Stop: 10/04/16 23:55 Ondansetron HCl (Zofran) Confirm Administered Dose 4 mg .ROUTE .STK-MED ONE Stop: 10/04/16 21:16 Propofol (Diprivan 20 Ml) Confirm Administered Dose 200 mg .ROUTE .STK-MED ONE Stop: 10/04/16 21:16 Rocuronium [place] (Zemuron) Confirm Administered Dose 50 mg .ROUTE .STK-MED ONE Stop: 10/04/16 21:16 Sodium Chloride (Saline Flush) 10 ml FLUSH ASDIRECTED PRN PRN Reason: Keep Vein Open Last Admin: 10/04/16 19:37 Dose: 10 ml - Exam General: alert, oriented HEENT: Mucous membr. moist/pink Neck: supple Lungs: Clear to auscultation, Normal respiratory effort Cardiovascular: Regular Rate, Regular Rhythm Abdomen: bowel sounds present, soft, no tenderness, no distension (Female) Exam: Normal external exam, Normal speculum exam, Normal bimanual exam Extremities: no edema Skin: warm, dry, intact Wound/Incisions: healing well Neurological: no new focal deficit Psy/Mental Status: alert, normal affect, normal mood - Problem List & Annotations (1) Ectopic SNOMED Code(s): 25288110 Status: Acute Current Visit: Yes - Problem List Review Problem List Initiated/Reviewed/Updated: No - My Orders Last 24 Hours: My Active Orders 10/04/16 23:58 Resuscitation Status Routine 10/05/16 00:30 Lactated Ringers [Ringers, Lactated] 1,000 ml IV ASDIRECTED 10/05/16 00:58 Ambulate [RC] ASDIRECTED May Shower [RC] ASDIRECTED Acetaminophen/oxyCODONE [Percocet 325-5 MG] 2 tab PO Q4H PRN Ibuprofen [Motrin] 600 mg PO Q6H PRN 10/05/16 06:00 Ketorolac [Toradol] 30 mg IVPUSH Q8H PRN 10/05/16 09:00 Docusate Sodium [Colace] 100 mg PO BID 10/05/16 Breakfast Regular Diet [DIET] 10/06/16 05:11 HCG QUANTITATIVE,SERUM [CHEM] DAILY - Assessment Assessment:: Facial, and, later today. Diet, and probably home tomorrow - Plan Plan:: Left lower quadrant pain suspected ectopic and empty uterus. Plan Laparoscopy, possible laparotomy and removal of a tube and/or ovary, possible dialatation and curettage.
--- NOTE | 2016-10-05 08:14 | PCM48HPAN ---
Post Anesthesia Note - EVALUATION WITHIN 48HRS OF ANESTHETIC Vital Signs in Normal Range: Yes Patient Participated in Evaluation: Yes Respiratory Function Stable: Yes Airway Patent: Yes Cardiovascular Function Stable: Yes Hydration Status Stable: Yes Pain Control Satisfactory: Yes Nausea and Vomiting Control Satisfactory: Yes Mental Status Recovered: Yes
[2016-10-05] MEDS ORDERED: Docusate Sodium 100 MG Cap PO SCH (09:00)
--- NOTE | 2016-10-05 17:33 | PCM.DCSUM1 ---
Discharge Summary - Hospital Course Free Text/Narrative:: [facility] Post-Op/Procedure Note Patient Name: WILL PLEITEZ Date of : 85 Patient Status: Observation Attending Provider: Román Moore Date: 10/05/16 00:02 Initialization Date: 10/05/16 00:02 - General Post-Op/Procedure Note Date of Surgery/Procedure: 10/04/16 Operative Procedure(s): Laparoscopy for ectopic . 29181, with removal of left fallopian tube Pre Op Diagnosis: Ectopic . Left fallopian tube Post-Op Diagnosis: Same Anesthesia Technique: General ET tube Primary Surgeon: Román Moore Anesthesia Provider: Norman Ryan Fluid Replacement, Intraop: 1,800 Output, Urine Amount: 350 EBL in mLs: 100 Drain/Tube Comments:: None Complications: None Condition: Good Free Text/Narrative:: Patient was transported to operating room #2, and placed under total anesthesia with endotracheal intubation in the low dorsal lithotomy position. Timeout performed confirming name, date of , and procedures laparoscopy, possible laparotomy for ectopic . Examination under anesthesia revealed left adnexal mass. Patient had had previous left ectopic in surgery in [place], but the fallopian tube was not removed by history. Uterine manipulator was placed. Harris catheter was placed and injecting 0.5% Marcaine 2 mL. At the umbilicus and suprapubic area the small incision was made and pneumoperitoneum, needle introduced and pneumoperitoneum obtained without difficulty and then, the 5 mm port in douched. Prompt visualization. The pelvic organs was accomplished, but dense adhesions of the omentum to the anterior abdominal wall had to be lysed with blunt, sharp section. Prior to being able to visualize. The left ectopic . A suprapubic port 5 mm and a right midabdomen sidewall 12 mm port introduced with transillumination to avoid vessel disruption utilizing laparoscopic instruments. The adhesions of the omentum and bowel to the intra-abdominal wall were carefully lysed with blunt, sharp section, and utilizing, Endo seal. Crossclamping, activating, and , incising, until the left ectopic could be visualized. This was then grasped, and left fallopian tube portion containing ectopic was removed along with blood clot and what appeared to be left ectopic . Left ovary was not removed. Right tube and ovary were not removed. Patient was carried out. Suction applied, and visualization. The operative area showed no bleeding. Utilizing Endobag the ectopic , and portion of fallopian tube removed and sent to pathology for tissue evaluation. Sponge, needle, practice with sharp count correct, x2. The pneumoperitoneum was reduced confirming no bleeding. At the 12 mm site and the suprapubic site, and suture ligating the anterior fascia with 0 Vicryl running, locking suture, and subcuticular suture for the right side. Incision. Good suprapubic incision and the umbilical incision followed by Dermabond. One set of pictures taken 6 images first image, shows adhesions of the omentum to the abdominal wall. Image zero loop 2, shows right fallopian tube and ovary , image 03, shows the left fallopian tube with ectopic , and blood clots. After removal of the dense adhesions image 005 shows the operative site. After removal of the ectopic , with no active bleeding. Image 6 , shows the left ovary, which was not removed. I talked with her significant other and discussed surgery and Findings and all questions answered is voice satisfaction patient placed on observation HPI Initial Comments: [facility] Post-Op/Procedure Note Patient Name: WILL PLEITEZ Date of : 85 Patient Status: Observation Attending Provider: Román Moore Date: 10/05/16 00:02 Initialization Date: 10/05/16 00:02 - General Post-Op/Procedure Note Date of Surgery/Procedure: 10/04/16 Operative Procedure(s): Laparoscopy for ectopic . 91395, with removal of left fallopian tube Pre Op Diagnosis: Ectopic . Left fallopian tube Post-Op Diagnosis: Same Anesthesia Technique: General ET tube Primary Surgeon: Román Moore Anesthesia Provider: Norman Ryan Fluid Replacement, Intraop: 1,800 Output, Urine Amount: 350 EBL in mLs: 100 Drain/Tube Comments:: None Complications: None Condition: Good Free Text/Narrative:: Patient was transported to operating room #2, and placed under total anesthesia with endotracheal intubation in the low dorsal lithotomy position. Timeout performed confirming name, date of , and procedures laparoscopy, possible laparotomy for ectopic . Examination under anesthesia revealed left adnexal mass. Patient had had previous left ectopic in surgery in [place], but the fallopian tube was not removed by history. Uterine manipulator was placed. Harris catheter was placed and injecting 0.5% Marcaine 2 mL. At the umbilicus and suprapubic area the small incision was made and pneumoperitoneum, needle introduced and pneumoperitoneum obtained without difficulty and then, the 5 mm port in douched. Prompt visualization. The pelvic organs was accomplished, but dense adhesions of the omentum to the anterior abdominal wall had to be lysed with blunt, sharp section. Prior to being able to visualize. The left ectopic . A suprapubic port 5 mm and a right midabdomen sidewall 12 mm port introduced with transillumination to avoid vessel disruption utilizing laparoscopic instruments. The adhesions of the omentum and bowel to the intra-abdominal wall were carefully lysed with blunt, sharp section, and utilizing, Endo seal. Crossclamping, activating, and , incising, until the left ectopic could be visualized. This was then grasped, and left fallopian tube portion containing ectopic was removed along with blood clot and what appeared to be left ectopic . Left ovary was not removed. Right tube and ovary were not removed. Patient was carried out. Suction applied, and visualization. The operative area showed no bleeding. Utilizing Endobag the ectopic , and portion of fallopian tube removed and sent to pathology for tissue evaluation. Sponge, needle, practice with sharp count correct, x2. The pneumoperitoneum was reduced confirming no bleeding. At the 12 mm site and the suprapubic site, and suture ligating the anterior fascia with 0 Vicryl running, locking suture, and subcuticular suture for the right side. Incision. Good suprapubic incision and the umbilical incision followed by Dermabond. One set of pictures taken 6 images first image, shows adhesions of the omentum to the abdominal wall. Image zero loop 2, shows right fallopian tube and ovary , image 03, shows the left fallopian tube with ectopic , and blood clots. After removal of the dense adhesions image 005 shows the operative site. After removal of the ectopic , with no active bleeding. Image 6 , shows the left ovary, which was not removed. I talked with her significant other and discussed surgery and Findings and all questions answered is voice satisfaction patient placed on observation Brief History: [facility] . Post-Op/Procedure Note. Patient Name: Jessica PLEITEZ Record Number: [id number]. Date of : Patient Status: Observation. Attending Provider: Román Mooreccount Number: [id number]. Date: 10/05/16 00:02Initialization Date: 10/05/16 00:02. - General Post-Op/Procedure Note. Date of Surgery/Procedure: 10/04/16. Operative Procedure(s): Laparoscopy for ectopic . 83621, with removal of left fallopian tube. Pre Op Diagnosis: Ectopic . Left fallopian tube. Post-Op Diagnosis: Same. Anesthesia Technique: General ET tube. Primary Surgeon: Román Moore. Anesthesia Provider: Norman Ryan. Fluid Replacement, Intraop: 1,800. Output, Urine Amount: 350. EBL in mLs: 100. Drain/Tube Comments:: None. Complications: None. Condition: Good. Free Text/ Narrative:: Patient was transported to operating room #2, and placed under total anesthesia with endotracheal intubation in the low dorsal lithotomy position. Timeout performed confirming name, date of , and procedures laparoscopy, possible laparotomy for ectopic . Examination under anesthesia revealed left adnexal mass. Patient had had previous left ectopic in surgery in [place], but the fallopian tube was not removed by history. Uterine manipulator was placed. Harris catheter was placed and injecting 0.5% Marcaine 2 mL. At the umbilicus and suprapubic area the small incision was made and pneumoperitoneum, needle introduced and pneumoperitoneum obtained without difficulty and then, the 5 mm port in douched. Prompt visualization. The pelvic organs was accomplished, but dense adhesions of the omentum to the anterior abdominal wall had to be lysed with blunt, sharp section. Prior to being able to visualize. The left ectopic . A suprapubic port 5 mm and a right midabdomen sidewall 12 mm port introduced with transillumination to avoid vessel disruption utilizing laparoscopic instruments. The adhesions of the omentum and bowel to the intra-abdominal wall were carefully lysed with blunt, sharp section, and utilizing, Endo seal. Crossclamping, activating, and, incising, until the left ectopic could be visualized. This was then grasped, and left fallopian tube portion containing ectopic was removed along with blood clot and what appeared to be left ectopic . Left ovary was not removed. Right tube and ovary were not removed. Patient was carried out. Suction applied, and visualization. The operative area showed no bleeding. Utilizing Endobag the ectopic , and portion of fallopian tube removed and sent to pathology for tissue evaluation. Sponge, needle, practice with sharp count correct, x2. The pneumoperitoneum was reduced confirming no bleeding. At the 12 mm site and the suprapubic site, and suture ligating the anterior fascia with 0 Vicryl running, locking suture, and subcuticular suture for the right side. Incision. Good suprapubic incision and the umbilical incision followed by Dermabond. One set of pictures taken 6 images first image, shows adhesions of the omentum to the abdominal wall. Image zero loop 2, shows right fallopian tube and ovary , image 03, shows the left fallopian tube with ectopic , and blood clots. After removal of the dense adhesions image 005 shows the operative site. After removal of the ectopic , with no active bleeding. Image 6 , shows the left ovary, which was not removed. I talked with her significant other and discussed surgery and Findings and all questions answered is voice satisfaction patient placed on observation - Discharge Data Discharge Date: 10/05/16 Discharge Disposition: Home, Self-Care 01 Condition: Good - Discharge Diagnosis/Problem(s) (1) Ectopic SNOMED Code(s): 01454671 Status: Acute Current Visit: Yes Qualifiers: Location of ectopic : tubal Intrauterine status: without intrauterine Qualified Code(s): O00.10 - Tubal without intrauterine - Patient Summary/Data Operative Procedure(s) Performed: Laparoscopy for ectopic . 99853, with removal of left fallopian tube Complications: none Consults: none Hospital Course: uneventful - Patient Instructions Diet: Heart Healthy Diet Driving: Do Not Drive (x48 hr) Showering/Bathing: May Shower, No Tub Bathing/Swimming (x6 weeks) Notify Provider of: Fever, Increased Pain, Swelling and Redness, Drainage, Nausea and/or Vomiting - Discharge Plan Prescriptions/Med Rec: Acetaminophen/oxyCODONE [Percocet 325-5 MG] 1 tab PO Q8H PRN #20 tablet PRN Reason: Pain Home Medications: Home Meds Acetaminophen/oxyCODONE [Percocet 325-5 MG] 1 tab PO Q8H PRN #20 tablet [Rx] Docusate Sodium [Colace] 100 mg PO BID cap 10/05/16 [Rx] Ibuprofen [Motrin] 200 - 600 mg PO Q6H PRN #0 tablet 10/05/16 [Rx] Patient Handouts: Smoking Hazards, Smoking Cessation, Tips for Success, Ectopic , [id number] Forms: ED Department Discharge Referrals: Román Moore MD [Physician] - PCP,None [Primary Care Provider] - - Discharge Summary/Plan Comment DC Time >30 min.: No - Patient Data Vitals - Most Recent: Last Vital Signs Temp 98.8 F 10/05/16 12:30 Pulse 62 10/05/16 12:30 Resp 17 10/05/16 12:30 BP 111/88 10/05/16 12:30 Pulse Ox 100 10/05/16 12:30 Weight - Most Recent: 198 lb I&O - Last 24 hours: Intake & Output 10/05/16 10/05/16 10/05/16 06:59 14:59 22:59 Intake Total 3230 Output Total 700 300 Balance 2530 -300 Lab Results - Last 24 hrs: Laboratory Results - last 24 hr 10/05/16 10/05/16 Range/Units 06:10 06:10 WBC 8.35 (3.98-10.04) K/mm3 RBC 3.92 L (3.98-5.22) M/mm3 Hgb 12.2 (11.2-15.7) gm/L Hct 37.0 (34.1-44.9) % MCV 94.4 (79.4-94.8) fl MCH 31.1 (25.6-32.2) pg MCHC 33.0 (32.2-35.5) g/dl RDW Std Deviation 43.2 (36.4-46.3) fL Plt Count 204 (182-369) K/mm3 MPV 10.7 (9.4-12.3) fl Neut % (Auto) 57.4 (34.0-71.1) % Lymph % (Auto) 33.9 (19.3-51.7) % [place] % (Auto) 7.8 (4.7-12.5) % Eos % (Auto) 0.6 L (0.7-5.8) Baso % (Auto) 0.1 (0.1-1.2) % Neut # 4.79 (1.56-6.13) K/mm3 Lymph # 2.83 (1.18-3.74) K/mm3 [place] # 0.65 H (0.24-0.36) K/mm3 Eos # 0.05 (0.04-0.36) K/mm3 Baso # 0.01 (0.01-0.08) K/mm3 HCG, Quant 73.0 mIU/mL Med Orders - Current: Current Medications Docusate Sodium (Colace) 100 mg PO BID [facility] Last Admin: 10/05/16 08:56 Dose: 100 mg Lactated Ringer's (Ringers, Lactated) 1,000 mls @ 125 mls/hr IV ASDIRECTED [facility] Last Admin: 10/05/16 07:31 Dose: 125 mls/hr Ibuprofen (Motrin) 600 mg PO Q6H PRN PRN Reason: Pain (mild 1-3) Ketorolac Tromethamine (Toradol) 30 mg IVPUSH Q8H PRN PRN Reason: Pain (moderate 4-6) Stop: 10/05/16 22:01 Last Admin: 10/05/16 08:56 Dose: 30 mg Oxycodone/Acetaminophen (Percocet 325-5 Mg) 2 tab PO Q4H PRN PRN Reason: Pain (moderate 4-6) Last Admin: 10/05/16 15:28 Dose: 2 tab Discontinued Medications Bupivacaine HCl (Marcaine 0.5%) Confirm Administered Dose 30 ml .ROUTE .STK-MED ONE Stop: 10/04/16 21:02 Last Admin: 10/04/16 22:15 Dose: 7 ml Cefazolin Sodium (Ancef) 2,000 mg IVPUSH ONETIME ONE Stop: 10/04/16 21:46 Last Admin: 10/05/16 02:28 Dose: Not Given Cefazolin Sodium (Ancef) Confirm Administered Dose 2 gm .ROUTE .STK-MED ONE Stop: 10/04/16 22:13 Fentanyl (Sublimaze) Confirm Administered Dose 250 mcg .ROUTE .STK-MED ONE Stop: 10/04/16 21:16 Fentanyl (Sublimaze) Confirm Administered Dose 250 mcg .ROUTE .STK-MED ONE Stop: 10/04/16 23:19 Fentanyl (Sublimaze) 50 mcg IVPUSH Q5M PRN PRN Reason: Pain Stop: 10/05/16 00:18 Glycopyrrolate () Confirm Administered Dose 1 mg .ROUTE .STK-MED ONE Stop: 10/04/16 23:55 Hydromorphone HCl (Dilaudid) 0.5 mg IVPUSH ONETIME ONE Stop: 10/04/16 19:21 Last Admin: 10/04/16 19:36 Dose: 0.5 mg Hydromorphone HCl (Dilaudid) 0.5 mg IVPUSH Q15M PRN PRN Reason: Pain Stop: 10/05/16 00:18 Sodium Chloride (Normal Saline) 1,000 mls @ 125 mls/hr IV ASDIRECTED [facility] JOSE Last Admin: 10/04/16 19:33 Dose: 125 mls/hr Lidocaine HCl (Xylocaine-Mpf 1%) Confirm Administered Dose 4 mls @ as directed .ROUTE .STK-MED ONE Stop: 10/04/16 21:17 Ketorolac Tromethamine (Toradol) Confirm Administered Dose 30 mg .ROUTE .STK- MED ONE Stop: 10/04/16 23:52 Meperidine HCl (Demerol) Confirm Administered Dose 50 mg .ROUTE .STK-MED ONE Stop: 10/05/16 00:22 Last Admin: 10/05/16 02:26 Dose: Not Given Meperidine HCl (Demerol) 12.5 mg IVPUSH ONETIME ONE Stop: 10/05/16 00:27 Last Admin: 10/05/16 00:34 Dose: 12.5 mg Midazolam HCl (Versed 1 Mg/Ml) Confirm Administered Dose 2 mg .ROUTE .STK-MED ONE Stop: 10/04/16 21:16 Neostigmine Methylsulfate (Neostigmine) Confirm Administered Dose 5 mg .ROUTE .STK-MED ONE Stop: 10/04/16 23:55 Ondansetron HCl (Zofran) Confirm Administered Dose 4 mg .ROUTE .STK-MED ONE Stop: 10/04/16 21:16 Propofol (Diprivan 20 Ml) Confirm Administered Dose 200 mg .ROUTE .STK-MED ONE Stop: 10/04/16 21:16 Rocuronium [place] (Zemuron) Confirm Administered Dose 50 mg .ROUTE .STK-MED ONE Stop: 10/04/16 21:16 Sodium Chloride (Saline Flush) 10 ml FLUSH ASDIRECTED PRN PRN Reason: Keep Vein Open Last Admin: 10/04/16 19:37 Dose: 10 ml *Q Meaningful Use (DIS) - VTE *Q VTE Criteria *Q: - Stroke *Q Stroke Criteria *Q: - AMI *Q AMI Criteria *Q:
[2016-10-05 18:45] VITALS: BP 100/57
== END 2016-10-05 18:38 | disposition home or self-care (01) ==
LOC: EDBD 18:55 → JD.ED 18:55 → JD.SDS 21:00 → MERGE 23:57 → UNDOADMOB 23:57 → JD.OB 23:57 → JD.SDS 23:57 → JD.OB 10-05 13:21 → JD.MS 10-05 13:21 → JD.OB 10-05 13:25 → JD.MS 10-05 13:25 → JD.OB 10-05 13:34 → JD.MS 10-05 13:34 → JD.OB 10-05 13:44 → JD.MS 10-05 13:44 → UNDODISOB 10-05 18:38 → JD.SDS 10-05 18:38
PROVIDERS: ATTEND Obstetrics & Gynecology
PROC: 10T24ZZ Resection of Products of Conception, Ectopic, Percutaneous Endoscopic Approach (ICD-10-PCS; principal; 2016-10-04)
PROC: 0UT64ZZ Resection of Left Fallopian Tube, Percutaneous Endoscopic Approach (ICD-10-PCS; 2016-10-04)
DX: O00.10 Tubal pregnancy without intrauterine pregnancy (principal); O99.331 Smoking (tobacco) complicating pregnancy, first trimester; Z3A.00 Weeks of gestation of pregnancy not specified
CPT/HCPCS: 36415; 59151; 76817; 80053; 81001; 83690; 84702; 85025; 86900; 86901; 88305; 96361; 96374; 99285; A9270; J0690; J1170; J1885; J2175; J2250; J2405; J2710; J3010; J7040; J7050; J7120; 00840; J2704